=== PATIENT | male | born 1980 | race Caucasian/White ===

== ENCOUNTER 2018-05-03 21:10 | Emergency (ER) | payer BC ==
[2018-05-03 21:24] VITALS: BP 145/89
--- NOTE | 2018-05-03 21:47 | UC ---
Skin Complaint HPI - HPI Summary HPI Summary: insect bite to top of right foot, itchy red and swollen. Patient is worried about infection as he is traveling to [facility] - History of Current Complaint Chief Complaint: UCSkin Time Seen by Provider: 05/03/18 21:23 Stated Complaint: FOOT PAIN,SWELLING Hx Obtained From: Patient Onset/Duration: Sudden Onset, Lasting Days - 2 Skin Exposure Onset/Duration: Days Ago - 2 Pain Intensity: 4 Pain Scale Used: 0-10 Numeric Location: Discrete Character: Swelling, Redness Aggravating Factor(s): Nothing Alleviating Factor(s): Nothing Associated Signs & Symptoms: Positive: Negative. Negative: Red Streaks Related History: Possible Reaction to: Insect - Allergy/Home Medications Allergies/Adverse Reactions: Allergies Allergy/AdvReac Type Severity Reaction Status Date / Time cefadroxil Allergy Rash Verified 05/03/18 21:25 Home Medications: Home Medications Albuterol 2.5MG/3ML (0.083%)* [Ventolin 2.5 MG/3 ML NEB.PER*] 1 puff PO Q4H PRN 05/03/18 [History Confirmed 05/03/18] Review of Systems Constitutional: Negative Skin: Other - no streaking, red swollen area top of right foot, itchy not painful Eyes: Negative ENT: Negative Respiratory: Negative Cardiovascular: Negative Gastrointestinal: Negative Genitourinary: Negative Motor: Negative Neurovascular: Negative Musculoskeletal: Negative Neurological: Negative Psychological: Negative Is Patient Immunocompromised?: No All Other Systems Reviewed And Are Negative: Yes PMH/Surg Hx/FS Hx/Imm Hx Previously Healthy: No Respiratory History: Asthma - mild intermittent asthma - Surgical History Surgical History: None - Family History Known Family History: Positive: None - Social History Occupation: Employed Full-time Lives: With Family Alcohol Use: Occasionally Substance Use Type: None Smoking Status (MU): Never Smoked Tobacco Physical Exam Triage Information Reviewed: Yes Appearance: Well-Appearing, No Pain Distress, Well-Nourished Vital Signs: Initial Vital Signs Temp 98.5 F 05/03/18 21:19 Pulse 73 05/03/18 21:19 Resp 18 05/03/18 21:19 BP 145/89 05/03/18 21:19 Pulse Ox 96 05/03/18 21:19 Vital Signs Reviewed: Yes Eye Exam: Normal Eyes: Positive: Conjunctiva Clear ENT Exam: Normal ENT: Positive: Normal ENT inspection, Hearing grossly normal. Negative: Trismus , Muffled voice, Hoarse voice Dental Exam: Normal Neck exam: Normal Neck: Positive: Supple, Nontender Respiratory Exam: Normal Respiratory: Positive: Chest non-tender, Lungs clear, Normal breath sounds, No respiratory distress, No accessory muscle use Cardiovascular Exam: Normal Cardiovascular: Positive: RRR, No Murmur, Pulses Normal, Brisk Capillary Refill Musculoskeletal Exam: Other Musculoskeletal: Positive: Strength Intact, ROM Intact, Edema @ - top of right foot Neurological Exam: Normal Neurological: Positive: Alert, Muscle Tone Normal Psychological Exam: Normal Skin Exam: Normal Course/Dx - Course Course Of Treatment: patient will use Benadryl when he does not need to be awake alert. Please second generation antihistamine at other times. Ice to the area and elevation patient is concerned about infection education provided and patient reassured that his wound does not infected. I am agreeable to sending him with a prescription for antibiotics will he travels the event something should change patient educated to signs and symptoms of infection plan to follow with PCP - Diagnoses Provider Diagnoses: Insect bite to right foot with localized reaction Discharge - Sign-Out/Discharge Documenting (check all that apply): Discharge/Admit/Transfer - Discharge Plan Condition: Stable Disposition: HOME Prescriptions: Sulfamethox/Trimethoprim DS* [Bactrim DS 800/160 TAB*] 1 tab PO BID #14 tab Patient Education Materials: Diphenhydramine (By mouth), Hydrocortisone (On the skin), Insect Bite or Sting (ED), Ice Pack Application (ED) Referrals: [facility] [place] [Outside] - If Needed - Billing Disposition and Condition Condition: STABLE Disposition: Home
== END 2018-05-03 21:55 | disposition home or self-care (01) ==
LOC: UCEAST 21:10
DX: S90.861A Insect bite (nonvenomous), right foot, initial encounter (principal); W57.XXXA Bitten or stung by nonvenomous insect and other nonvenomous arthropods, initial encounter; Y93.9 Activity, unspecified; Y92.9 Unspecified place or not applicable; J45.20 Mild intermittent asthma, uncomplicated; Z88.1 Allergy status to other antibiotic agents
CPT/HCPCS: 99212; G0463

== ENCOUNTER 2019-01-05 19:55 | Emergency (ER) | payer BC ==
[2019-01-05 20:15] VITALS: BP 140/82
[2019-01-05] MEDS ORDERED: Albuterol HFA INHALER* 8 gm MDI INH ONE (21:00)
[2019-01-05] MEDS ORDERED: Azithromycin TAB* 250 MG PO ONE (21:00)
--- NOTE | 2019-01-05 21:00 | UC ---
Respiratory Complaint HPI - HPI Summary HPI Summary: 38-year-old male comes to clinic today with a chief complaint of shortness of breath and chest congestion. Patient had flulike symptoms started about a week and a half ago. The body aches and the fevers have gone however the chest congestion has remained. He has asthma has been using his inhaler which does help with the shortness of breath but he continues to wheeze and he is feeling short of breath. He also feels congestion in his chest. Has a history of pneumonia. - History of Current Complaint Chief Complaint: UCRespiratory Stated Complaint: UNABLE TO TAKE A DEEP BREATHE Time Seen by Provider: 01/05/19 20:46 Pain Intensity: 0 - Allergies/Home Medications Allergies/Adverse Reactions: Allergies Allergy/AdvReac Type Severity Reaction Status Date / Time shellfish derived Allergy Severe Anaphylatic Verified 01/05/19 20:16 Shock cefadroxil Allergy Rash Verified 01/05/19 20:16 Home Medications: Home Medications Fluticasone HFA 110 mcg(NF) [Flovent HFA 110 mcg(NF)] 1 puff INH BID 01/05/19 [ History Confirmed 01/05/19] PMH/Surg Hx/FS Hx/Imm Hx Previously Healthy: Yes Respiratory History: Asthma, Pneumonia - Surgical History Surgical History: Yes Surgery Procedure, Year, and Place: WRIST SURGERY - Family History Known Family History: Positive: None, Hypertension - Social History Alcohol Use: Occasionally Substance Use Type: Excessive Caffeine Smoking Status (MU): Never Smoked Tobacco Review of Systems All Other Systems Reviewed And Are Negative: Yes Constitutional: Positive: Negative Skin: Positive: Negative Eyes: Positive: Negative ENT: Positive: Negative Respiratory: Positive: Shortness Of Breath, Cough, Other - WHEEZING Cardiovascular: Positive: Negative Gastrointestinal: Positive: Negative Motor: Positive: Negative Neurovascular: Positive: Negative Musculoskeletal: Positive: Negative Neurological: Positive: Negative Psychological: Positive: Negative Is Patient Immunocompromised?: No Physical Exam Triage Information Reviewed: Yes Appearance: No Pain Distress, Well-Nourished, Ill-Appearing - MILD Vital Signs: Initial Vital Signs Temp 98.6 F 01/05/19 20:09 Pulse 81 01/05/19 20:09 Resp 16 01/05/19 20:09 BP 140/82 01/05/19 20:09 Pulse Ox 97 01/05/19 20:09 Vital Signs Reviewed: Yes Eye Exam: Normal Eyes: Positive: Conjunctiva Clear ENT: Positive: Pharynx normal, Nasal congestion, Nasal drainage, TMs normal Neck exam: Normal Neck: Positive: Supple Respiratory: Positive: No respiratory distress, Rhonchi, Wheezing Cardiovascular: Positive: RRR Musculoskeletal Exam: Normal Musculoskeletal: Positive: Strength Intact, ROM Intact Neurological Exam: Normal Neurological: Positive: Alert, Muscle Tone Normal Psychological Exam: Normal Psychological: Positive: Normal Response To Family, Age Appropriate Behavior Skin Exam: Normal UC Diagnostic Evaluation - Laboratory O2 Sat by Pulse Oximetry: 97 Respiratory Course/Dx - Differential Dx/Diagnosis Provider Diagnosis: Bronchitis, Asthma Discharge - Sign-Out/Discharge Documenting (check all that apply): Patient Departure All imaging exams completed and their final reports reviewed: No Studies - Discharge Plan Condition: Stable Disposition: HOME Prescriptions: Albuterol 2.5MG/3ML (0.083%)* [Ventolin 2.5 MG/3 ML NEB.PER*] 2.5 mg INH Q4H PRN #30 neb.per PRN Reason: Wheezing Albuterol HFA INHALER* [Ventolin HFA Inhaler*] 2 puff INH Q4H PRN #1 mdi PRN Reason: Wheezing Azithromycin 250 mg PO DAILY #4 tablet Fluticasone HFA 220 mcg(NF) [Flovent HFA 220 Mcg(NF)] 2 puff INH BID #1 mdi predniSONE TAB* [Deltasone 20 MG TAB*] 40 mg PO DAILY #8 tab Patient Education Materials: Asthma (ED), Acute Bronchitis (ED) Referrals: [facility] [place] [facility] [Outside] Additional Instructions: FOLLOW UP WITH YOUR DOCTOR IF NOT COMPLETELY IMPROVED. GET RECHECKED FOR ANY WORSENING OF YOUR CONDITION OR QUESTIONS OR CONCERNS. - Billing Disposition and Condition Condition: STABLE Disposition: Home
[2019-01-05] MEDS ORDERED: predniSONE TAB* 20 MG PO ONE (21:01)
== END 2019-01-05 21:25 | disposition home or self-care (01) ==
LOC: UCEAST 19:55
DX: J45.909 Unspecified asthma, uncomplicated (principal); Z87.01 Personal history of pneumonia (recurrent); Z88.1 Allergy status to other antibiotic agents; Z91.013 Allergy to seafood; Z79.899 Other long term (current) drug therapy
CPT/HCPCS: 99212; A9270-GY; G0463; J7512